=== PATIENT | female | born 1970 | race African-American/Black ===

== ENCOUNTER 2017-03-03 15:39 | Emergency (ER) | payer OTHER ==
[2017-03-03] MEDS ORDERED: ACETAMINOPHEN 500 MG TABLET (FP) PO ONE (16:09)
--- NOTE | 2017-03-03 16:09 | PDOC ---
Rapid Medical Evaluation Time Seen by Provider: 03/03/17 16:07 Medical Evaluation: Allergies Allergy/AdvReac Type Severity Reaction Status Date / Time No Known Allergies Allergy Verified 03/03/17 16:07 03/03/17 16:07 The patient presents with a chief complaint of: [Flu symptoms, bodyaches, cough fever, chills. Son diagnosed with flu yesterday.] I have performed a brief in-person evaluation of this patient. Pertinent physical exam findings: vss, [Lungs clear, RRR. abdomane soft, nontender, nondistended. ] I have ordered the following: [None] The patient will proceed to the ED for further evaluation.
[2017-03-03 16:10] VITALS: BP 128/82; PULSE 103; TEMP 102.5; BMI 29.9
--- NOTE | 2017-03-03 16:26 | PDOC ---
History of Present Illness - General Chief Complaint: Cold Symptoms Stated Complaint: BODYACHES, HEADACHE Time Seen by Provider: 03/03/17 16:07 History Source: Patient Exam Limitations: No Limitations - History of Present Illness Initial Comments: 03/03/17 16:21 Patient is a 46 y/o female with history of HBP, on metoprolol, presents with fever, chills, generalized pain. Son with the flu. Timing/Duration: 24 hours Severity: moderate Associated Symptoms: reports: cough, fever/chills, malaise Past History - Past Medical History Allergies/Adverse Reactions: Allergies Allergy/AdvReac Type Severity Reaction Status Date / Time No Known Allergies Allergy Verified 03/03/17 16:07 Home Medications: Ambulatory Orders Ibuprofen [Motrin -] 600 mg PO QID #20 tablet 03/03/17 Oseltamivir Phosphate [Tamiflu -] 75 mg PO BID #10 capsule 03/03/17 COPD: No HTN: Yes - Suicide/Smoking/Psychosocial Hx Smoking Status: No Smoking History: Never smoked Have you smoked in the past 12 months: No Number of Cigarettes Smoked Daily: 0 Information on smoking cessation initiated: No Hx Alcohol Use: No Drug/Substance Use Hx: No Substance Use Type: None Review of Systems - Review of Systems Constitutional: Yes: Symptoms Reported, Chills, Fever HEENTM: No: Symptoms Reported Respiratory: Yes: Cough. No: SOB with Exertion, SOB at Rest Cardiac (ROS): No: Symptoms Reported, Chest Pain ABD/GI: No: Symptoms Reported, Nausea, Vomiting : No: Symptoms Reported, Burning, Dysuria Musculoskeletal: No: Symptoms Reported Integumentary: No: Symptoms Reported Neurological: No: Symptoms reported All Other Systems: Reviewed and Negative *Physical Exam - Vital Signs Last Vital Signs Temp Pulse Resp BP Pulse Ox 102.5 F H 103 H 18 128/82 100 03/03/17 16:08 03/03/17 16:08 03/03/17 16:08 03/03/17 16:08 03/03/17 16:08 - Physical Exam General Appearance: Yes: Appropriately Dressed. No: Apparent Distress HEENT: positive: KARL, Normal ENT Inspection, Normal Voice, Symmetrical, TMs Normal, Pharynx Normal Neck: positive: Trachea midline. negative: Tender, Lymphadenopathy (R), Lymphadenopathy (L), Tender lateral, Tender midline Respiratory/Chest: positive: Lungs Clear, Normal Breath Sounds. negative: Respiratory Distress, Accessory Muscle Use Cardiovascular: positive: Regular Rhythm, Regular Rate Gastrointestinal/Abdominal: positive: Normal Bowel Sounds, Soft. negative: Tender Lymphatic: negative: Adenopathy Musculoskeletal: positive: Normal Inspection Extremity: positive: Normal Inspection, Normal Range of Motion Integumentary: positive: Normal Color, Dry Medical Decision Making - Medical Decision Making 03/03/17 16:24 A/P: Patient with influenza type illness, exposed to influenza. Will discharge on Motrin and tamiflu. Follow up with PMD. *DC/Admit/Observation/Transfer Diagnosis at time of Disposition: Exposure to influenza - Discharge Dispostion Disposition: HOME Condition at time of disposition: Stable - Prescriptions Prescriptions: Ibuprofen [Motrin -] 600 mg PO QID #20 tablet Oseltamivir Phosphate [Tamiflu -] 75 mg PO BID #10 capsule - Referrals - Patient Instructions Printed Discharge Instructions: Influenza Additional Instructions: Increase fluids Please know that you have influenza and tadeo are very contagious. Treat the fever. Make sure to stay hydrated. - Post Discharge Activity Forms/Work/School Notes: Back to Work
== END 2017-03-03 16:33 | disposition home or self-care (01) ==
LOC: JER 15:39
DX: J11.1 Influenza due to unidentified influenza virus with other respiratory manifestations (principal)
CPT/HCPCS: 99281-25

== ENCOUNTER 2017-07-03 17:27 | Emergency (ER) | payer OTHER ==
--- NOTE | 2017-07-03 17:36 | PDOC ---
Rapid Medical Evaluation Time Seen by Provider: 07/03/17 17:34 Medical Evaluation: Allergies Allergy/AdvReac Type Severity Reaction Status Date / Time No Known Allergies Allergy Verified 03/03/17 16:07 07/03/17 17:34 I have performed a brief in-person evaluation of this patient. the patient presents with a chief complaint of left ear pain this am. States pain is intermittent with no decrease hearing or feeling as if it is clogged Pertinent physical exam findings: NAD HEENT: non tender tragus, pinna or mastoid bone I have ordered the following: none The patient will proceed to the
[2017-07-03 17:38] VITALS: BP 142/85; PULSE 68; TEMP 98.7; BMI 29.8
--- NOTE | 2017-07-03 18:16 | PDOC ---
History of Present Illness - General Chief Complaint: Ear Problem Stated Complaint: EAR PAIN Time Seen by Provider: 07/03/17 17:34 History Source: Patient Exam Limitations: No Limitations - History of Present Illness Initial Comments: 07/03/17 18:15 Patient is a 46-year-old female who presents emergency Department with 1 day of left ear pain. She states the pain is intermittent. Denies fevers, chills, hearing changes, sore throat, cough, nausea, vomiting and diarrhea. Past History - Travel Traveled outside of the country in the last 30 days: No Close contact w/someone who was outside of country & ill: No - Past Medical History Allergies/Adverse Reactions: Allergies Allergy/AdvReac Type Severity Reaction Status Date / Time No Known Allergies Allergy Verified 07/03/17 17:35 Home Medications: Ambulatory Orders Fluticasone Prop 0.05% Nasal [Flonase -] 1 - 2 spray NS DAILY #1 spray.pump Metoprolol Succinate 25 mg PO ASDIR 07/03/17 COPD: No HTN: Yes - Suicide/Smoking/Psychosocial Hx Smoking Status: No Smoking History: Never smoked Have you smoked in the past 12 months: No Number of Cigarettes Smoked Daily: 0 Hx Alcohol Use: No Drug/Substance Use Hx: No Substance Use Type: None Review of Systems - Review of Systems Able to Perform ROS?: Yes Comments:: 07/03/17 18:15 CONSTITUTIONAL: Absent: fever, chills, diaphoresis, generalized weakness, malaise, loss of appetite HEENT: Present: L ear pain Absent: rhinorrhea, nasal congestion, throat pain, throat swelling, difficulty swallowing, mouth swelling, ear pain, eye pain, visual Changes CARDIOVASCULAR: Absent: chest pain, loss of consciousness, palpitations, irregular heart rate, peripheral edema RESPIRATORY: Absent: cough, shortness of breath, dyspnea with exertion, orthopnea, wheezing, stridor, hemoptysis GASTROINTESTINAL: Absent: abdominal pain, abdominal distension, nausea, vomiting, diarrhea, constipation, melena, hematochezia GENITOURINARY: Absent: dysuria, frequency, urgency, hesitancy, hematuria, flank pain, genital pain MUSCULOSKELETAL: Absent: myalgia, arthralgia, joint swelling SKIN: Absent: rash, itching, pallor HEMATOLOGIC/IMMUNOLOGIC: Absent: easy bleeding, easy bruising, lymphadenopathy, frequent infections ENDOCRINE: Absent: unexplained weight gain, unexplained weight loss, heat intolerance, cold intolerance NEUROLOGIC: Absent: headache, focal weakness or paresthesias, dizziness, unsteady gait, seizure, mental status changes, bladder or bowel incontinence PSYCHIATRIC: Absent: anxiety, depression, suicidal or homicidal ideation, hallucinations. Is the patient limited Montenegrin proficient: No *Physical Exam - Vital Signs Last Vital Signs Temp Pulse Resp BP Pulse Ox 98.7 F 68 19 142/85 100 07/03/17 17:35 07/03/17 17:35 07/03/17 17:35 07/03/17 17:35 07/03/17 17:35 - Physical Exam Comments: 07/03/17 18:16 GENERAL: Well developed, well nourished. Awake and alert. No acute distress. HEENT: Normocephalic, atraumatic. PERRLA, EOMI. No conjunctival pallor. Sclera are non- icteric. Moist mucous membranes. Oropharynx is clear. L TM retracted, no erythema. [place] NECK: Supple. Full ROM. No JVD. Carotid pulses 2+ and symmetric, without bruits. No thyromegaly. No lymphadenopathy. SKIN: Warm and dry. Normal capillary refill. No rashes. No jaundice. NEUROLOGICAL: Alert, awake, appropriate. Cranial nerves 2-12 intact. No deficits to light touch and temperature in face, upper extremities and lower extremities. No motor deficits in the in face, upper extremities and lower extremities. Normoreflexic in the upper and lower extremities. Normal speech. Toes are down- going bilaterally. Gait is normal without ataxia. Medical Decision Making - Medical Decision Making 07/03/17 18:26 Patient is a 46-year-old female who [facility] 1 day of left ear pain. On exam TM is retracted with no signs of infection. Most likely a fluid issue. We'll prescribe Flonase at this time. Return precautions given. Patient received all discharge instructions and all questions were answered. *DC/Admit/Observation/Transfer Diagnosis at time of Disposition: Ear pain, left - Discharge Dispostion Disposition: HOME Condition at time of disposition: Stable Decision to Admit order: No - Referrals Referrals: Jorge Lua MD [Staff Physician] - - Patient Instructions Printed Discharge Instructions: DI for Ear Pain-Adult Additional Instructions: You have ear pain without signs of infection. Please use the Flonase spray twice a day You may take Motrin 600 mg every 8 hours as needed for pain. Please follow up with her primary care doctor in 1 week if her symptoms are not getting better. Return to the emergency department you have fevers, chills, worsening pain, sore throat, or if you have any changes in your symptoms. - Post Discharge Activity
== END 2017-07-03 18:36 | disposition home or self-care (01) ==
LOC: JERFT 17:27
DX: H92.02 Otalgia, left ear (principal)
CPT/HCPCS: 99281-25

== ENCOUNTER 2018-10-17 06:45 | Emergency (ER) | payer OTHER ==
[2018-10-17 07:23] VITALS: BP 173/88; PULSE 73; TEMP 98; BMI 37.1
--- NOTE | 2018-10-17 07:49 | PDOC ---
History of Present Illness - General Chief Complaint: Pain Stated Complaint: KNEE PAIN Time Seen by Provider: 10/17/18 07:44 - History of Present Illness Initial Comments: 10/17/18 07:45 47 yo F with h/o HTN, who p/w bilateral knee pain. Patient reports acute on chronic, dull, bilateral knee pain x 2 days, worse with ambulation up steps. States that pain is stable throughout day, and has knee morning stiffness. Denies recent trauma to knee. Denies fall. Reports h/o similar pain in knees for which patient has received injections. Pain not improved with Tylenol, or Motrin. Has attempted ice to knee. Patient denies MCKINLEY, vision change, palpitations, cough, wheezing, orthopena, PND , leg swelling/pain, N/V, F,C, CP, SOB, urinary complaints, hematuria, BPR, abdominal pain, diarrhea, constipation, lightheadedness, weakness, sensory changes. PMHx: as noted above ROS: as noted SHx: Denies Etoh, IVDA, tobacco use Allergies: NKDA Past History - Past Medical History Allergies/Adverse Reactions: Allergies Allergy/AdvReac Type Severity Reaction Status Date / Time No Known Allergies Allergy Verified 07/03/17 17:35 Home Medications: Ambulatory Orders Fluticasone Prop 0.05% Nasal [Flonase -] 1 - 2 spray NS DAILY #1 spray.pump Metoprolol Succinate 25 mg PO ASDIR 07/03/17 Naproxen 375 mg PO TID PRN #30 tablet 10/17/18 COPD: No HTN: Yes - Suicide/Smoking/Psychosocial Hx Smoking Status: No Smoking History: Never smoked Have you smoked in the past 12 months: No Number of Cigarettes Smoked Daily: 0 Hx Alcohol Use: No Drug/Substance Use Hx: No Substance Use Type: None Review of Systems - Review of Systems Comments:: 10/17/18 07:46 GENERAL/CONSTITUTIONAL: No fever or chills. No weakness. HEAD, EYES, EARS, NOSE AND THROAT: No change in vision. No ear pain or discharge. No sore throat. CARDIOVASCULAR: No chest pain or shortness of breath RESPIRATORY: No cough, wheezing, or hemoptysis. GASTROINTESTINAL: No nausea, vomiting, diarrhea or constipation. GENITOURINARY: No dysuria, frequency, or change in urination. MUSCULOSKELETAL: + BL knee pain. No neck or back pain. SKIN: No rash NEUROLOGIC: No headache, vertigo, loss of consciousness, or change in strength/ sensation. ENDOCRINE: No increased thirst. No abnormal weight change HEMATOLOGIC/LYMPHATIC: No anemia, easy bleeding, or history of blood clots. ALLERGIC/IMMUNOLOGIC: No hives or skin allergy. *Physical Exam - Vital Signs Last Vital Signs Temp Pulse Resp BP Pulse Ox 98 F 73 18 173/88 H 100 10/17/18 07:21 10/17/18 07:21 10/17/18 07:21 10/17/18 07:21 10/17/18 07:21 - Physical Exam Comments: 10/17/18 07:47 GENERAL: Awake, alert, and fully oriented, in no acute distress HEAD: No signs of trauma, normocephalic, atraumatic EYES: PERRLA, EOMI, sclera anicteric, conjunctiva clear ENT: Auricles normal inspection, hearing grossly normal, nares patent, oropharynx clear without exudates. Moist mucosa NECK: Normal ROM, supple, no lymphadenopathy, JVD, or masses LUNGS: No distress, speaks full sentences, clear to auscultation bilaterally HEART: Regular rate and rhythm, normal S1 and S2, no murmurs, rubs or gallops, peripheral pulses normal and equal bilaterally. ABDOMEN: Soft, nontender, normoactive bowel sounds. No guarding, no rebound. No masses EXTREMITIES : Normal inspection, Normal range of motion, no edema. No clubbing or cyanosis. Palpable and symmetric 2 + pulses throughout. KNEE: Nml joint laxity. + mild BL joint effusion lateral knees. Neg varus/ valgus deformity. Nml passive and active extension. Pain with BL knee extension. Neg pretibial or tibial plateau ttp. NEUROLOGICAL: Cranial nerves II through XII grossly intact. Normal speech, normal gait, no focal sensorimotor deficits SKIN: Warm, Dry, normal turgor, no rashes or lesions noted Medical Decision Making - Medical Decision Making 10/17/18 07:47 47 yo F with h/o HTN, morbid obesity, who p/w bilateral knee pain. BP 173/88, vitals otherwise wnl, AF, A&Ox3. + Mild BL knee joint effusions. Physical exam otherwise unremarkable. Pain likely 2/2 degenerative changes. Absent evidence septic joint, hemarthrosis, overlying cellulitis. Denies trauma to knee. Will provide oral analgesia, and reassess. Ed Course: Patient evaluated and treated with Toradol 60 IM Naproxen sent to pharmacy Advised to f/u PMD Pain improved Stable for d/c with return precautions *DC/Admit/Observation/Transfer Diagnosis at time of Disposition: Bilateral knee pain Qualifiers: Chronicity: chronic Qualified Code(s): M25.561 - Pain in right knee - Discharge Dispostion Condition at time of disposition: Stable Decision to Admit order: No - Prescriptions Prescriptions: Naproxen 375 mg PO TID PRN #30 tablet PRN Reason: Pain - Referrals - Patient Instructions Printed Discharge Instructions: DI for Knee Pain Additional Instructions: Please return to the emergency department with any new or worsening symptoms or concerns. Please follow up with your primary care physician within 72 hours. Take Naproxen as needed for pain. - Post Discharge Activity Forms/Work/School Notes: Back to Work
[2018-10-17] MEDS ORDERED: KETOROLAC TROMETHAMINE 60 MG/2 ML VIAL IM ONE (08:13)
[2018-10-17] MEDS ORDERED: KETOROLAC TROMETHAMINE 60 MG/2 ML VIAL ONE (08:17)
--- NOTE | 2018-10-17 09:12 | PDOC ---
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 the pain is on the proximal knee. there is no warmth, fever/chills, falls or injuries. No chronic problems with her knee. Physical Exam: No focal bony tenderness to b/l knees. mild effusion/swelling on prox knee. normal ROM of knee, hips. ankle. no warmth, induration of knee suspect overuse vs arthritis toradol rest supportive care pmd fu - Physicial Exam PE: 10/17/18 09:22 see above - Medical Decision Making 10/17/18 09:22 see above
== END 2018-10-17 09:32 | disposition home or self-care (01) ==
LOC: JER 06:45
PROC: 3E0233Z Introduction of Anti-inflammatory into Muscle, Percutaneous Approach (ICD-10-PCS; principal; 2018-10-17)
DX: M25.462 Effusion, left knee (principal); M25.461 Effusion, right knee; M25.561 Pain in right knee; M25.562 Pain in left knee; I10 Essential (primary) hypertension; E66.01 Morbid (severe) obesity due to excess calories; Z68.37 Body mass index [BMI] 37.0-37.9, adult
CPT/HCPCS: 99281-25